=== PATIENT | female | born 1980 | race Hispanic/Latino ===

== ENCOUNTER 2016-06-29 03:37 | Emergency (ER) | payer SELFPAY ==
[~2016-06-29] VITALS: Ht 170.2 cm; Wt 79.5 kg
[~2016-06-29 03:37] MED LIST: ACET-2605 PO; OMEP20CA11 PO
[2016-06-29 03:41] VITALS: BP 126/79; PULSE 116; RESP 21; O2SAT 95
--- NOTE | 2016-06-29 03:53 | ED.REPORT ---
HPI-Abd Pain F Under 41 Date of Service Jun 29, 2016 ED Provider: Dr. Duran Rodas MD A 36 year old female presents to the ED complaining of N/V that began one week ago. Associated symptoms include fever, productive cough with yellow sputum, dyspnea, and a sore throat. Her dyspnea is exacerbated when she lays flat. Patient has been unable to eat without vomiting. She reports that her symptoms have become increasingly worse since onset. Patient denies any cough-vomiting. Nursing Notes Stated Complaint: NAUSEA, VOMITING Chief Complaint: Female Abdominal Pain Nursing Notes Reviewed: Yes Allergies: Coded Allergies: No Known Allergies (Unverified Allergy, Unknown, 03/07/15) Scheduled Azithromycin (Zithromax) 250 Mg Tablet 250 MG PO DAILY Cephalexin (Keflex) 500 Mg Capsule 500 MG PO QID Omeprazole (Omeprazole) 20 Mg Capsule.dr 20 MG PO DAILY Scheduled PRN Acetaminophen/Diphenhydramine (Tylenol Pm Ex-Strength Caplet) 500 Mg-25 Mg Tablet 2 EACH PO Q6H PRN PRN For Pain Ondansetron ODT (Ondansetron ODT) 8 Mg Tab.rapdis 8 MG PO QID PRN PRN For Nausea General Time Seen by MD: 03:52 Chief Complaint Vomiting moderate Hx Obtained From: Patient Arrived By: Walk-in Sudden in Onset?: No Onset Occurred: 1 week ago Symptom Duration: Since onset Progression since Onset: Gradually worsening Associated with: Reports: Fever, Nausea, Shortness of breath, Vomiting Pertinent Negative: Pt denies other symptoms : 3 Para: 2 Abortions: 1 RH Status / Blood Type: Rh Positive Exacerbated by: Supine Recent Healthcare: No recent doctor visit, No recent hospitalization Past Medical History Past Medical History Notes: Past Medical History Rh + Blood type O+ after review of old records Past Surgical History D&C Reports: (x 2), Hysterectomy Smoking History Current Every Day Smoker Social History Denies smoking at this time. Alcohol Use: Denies alcohol use Drug Use: Denies drug use Other Social History: , Local resident Ambulatory Status Independent Review of Systems Constitutional: Reports: Fever Respiratory: Reports: Prod cough, yellow, Shortness of breath Cardiovascular: Denies: Chest pain GI: Reports: Abdominal pain, Nausea, Vomiting Female: Denies: Complete sys rev & neg: except as marked. Neurologic: Denies: Change LOC Physical Exam Initial Vital Signs Vital Signs (First) Date Time Temp Pulse Resp B/P Pulse Ox O2 Delivery O2 Flow Rate FiO2 06/29/16 03:41 39.9 116 21 126/79 95 Room Air Initial VS: Reviewed Head / Eyes: Atraumatic, Normocephalic, PERRL Extremities: Vascular intact, Neuro intact, No swelling, No tenderness Neurologic: Alert, Oriented, Nonfocal Psychiatric: Mood/affect normal, Behavior normal, Normal thought content General/Constitutional: Awake, Alert, No acute distress, Well hydrated Respiratory / Chest: Atraumatic, Breath sounds NL, Breath sounds = bilat, No respiratory distress RESPIRATORY: Bronchospastic cough Cardiovascular: Heart rate NL, Regular rhythm, Heart sounds NL Abdomen: Atraumatic, Soft, Non-tender Back: Atraumatic, Inspection NL Skin: Atraumatic, Color NL, Warm SKIN: Warm, moist Neck: Atraumatic, Supple, No adenopathy Interpretation & Diagnostics Lab Results Interpretation Result Diagram: 06/29/1640906/29/16 0410 Test 06/29/16 04:10 White Blood Count 15.1th/mm3 (3.8-10.1) Red Blood Count 4.65mil/mm3 (3.90-5.20) Hemoglobin 13.5g/dL (12.0-15.6) Hematocrit 39.6% (35.0-46.0) Mean Corpuscular Volume 85.2fL (81-100) Mean Corpuscular Hemoglobin 29.0pg (27.0-35.0) Mean Corpuscular Hemoglobin Concent 34.1% (32.0-37.0) Red Cell Distribution Width 13.0% (12.3-15.4) Platelet Count 183bil/L (150-400) Neutrophils (%) (Auto) 83.8% (40-74) Lymphocytes (%) (Auto) 7.2% (14-46) Monocytes (%) (Auto) 7.5% (4-12) Eosinophils (%) (Auto) 1.2% (0-5) Basophils (%) (Auto) 0.1% (0-3) Sodium Level 137mEq/L (134-144) Potassium Level 3.8mEq/L (3.5-5.2) Chloride Level 99mEq/L (97-108) Carbon Dioxide Level 25mmol/L (18-29) Blood Urea Nitrogen 8mg/dL (6-20) Creatinine 0.39mg/dL (0.57-1.00) Estimat Glomerular Filtration Rate 268mL/min (>59) Glucose Level 120mg/dL (60-99) Calcium Level 8.4mg/dL (8.5-10.1) Magnesium Level 1.6mg/dL (1.6-2.6) Total Bilirubin 0.3mg/dL (0.0-1.2) Aspartate Amino Transf (AST/SGOT) 34U/L (0-50) Alanine Aminotransferase (ALT/SGPT) 38U/L (0-32) Alkaline Phosphatase 58U/L (25-150) Total Protein 7.6g/dL (6.4-8.4) Albumin 4.1g/dL (3.4-5.0) Procalcitonin 0.06ng/mL (0.00-0.08) Lab Results Interpretation: : Negative Influenza Negative X-Ray Chest Interpretation Chest Xray Interpretation: IMPRESSION: Right middle lobe with infiltrate Blunting of left hemidiaphragm Interpretation / Wet Read by: Wet read ED physician Re-Eval/Medical Decision Med Decision/Clinical Course Med Decision/Clinical Course: 36-year-old with cough and vomiting, fever, production of sputum with her cough, proves to have a right middle lobe infiltrate. She has some blunting of her left costophrenic angle of uncertain etiology. She was begun with Rocephin here and Keflex to follow, azithromycin here and a finish a Z-Zhou to follow. Albuterol metered-dose inhaler when necessary. Zofran for nausea. Prompt return if worse despite treatment. Re-Evaluation/Progress : Time of Eval: 05:05 Patient Status: Condition improved Re-Evaluation/Progress Note: Patient is rechecked. She is informed of her lab results, X-ray results and diagnosis. All questions are addressed. Patient is requesting a work note. She understands and agrees with the treatment plan. Counseled Regarding: Diagnosis, Lab results, Need for follow-up, When/why to return to ED Discharge & Departure Primary Impression: Community acquired pneumonia Additional Impressions: Vomiting Vomiting type: unspecified Vomiting Intractability: non-intractable Nausea presence: with nausea Qualified Code: R11.2 - Nausea with vomiting, unspecified Reactive airway disease that is not asthma Disposition: Home Discharge Condition All VS Reviewed: Yes Condition: Stable Patient Instructions: Acute Nausea and Vomiting (ED), Community-acquired Pneumonia (ED) Additional Instructions: Use Albuterol two puffs every four hours with spacer as needed. Take azithromycin daily for four more days. Take keflex 4x daily for ten days. Drink plenty of fluids and stay well-hydrated. Run a vaporizer in her room if possible. Zofran up to four times daily if needed for nausea Follow-up with your doctor in the office. Return if any immediate issues, particularly worsening trouble breathing or if you are getting worse despite treatment. Utilice Albuterol dos puffs cada cuatro horas con espaciador segn sea necesario. [place] azitromicina diariamente samia cuatro cheung ms. [place] Keflex quatro veces al da samia vicki cheung. Zandra mucho lquido y mantenerse duke hidratado. Ejecutar un vaporizador en mcdaniel habitacin si es posible. Zofran hasta cuatro veces al da si es necesario para las nuseas Seguimiento con mcdaniel mdico en la oficina. Regrese si hay problemas inmediatos, especialmente empeoramiento de la dificultad para respirar o si empeora a pesar del tratamiento. Referrals: [facility] (PCP) [facility] Scribe Attestation Portions of this note were transcribed by Olga España. IDr. Rodas personally performed the history, physical exam and medical decision-making; I reviewed and confirmed the accuracy of the information in the transcribed note. Signed by: Mary Bowman, 06/29/16 0600. Duran Rodas MD Jun 29, 2016 03:52 OLGA ESPAÑA Jun 29, 2016 03:59
[2016-06-29] MEDS ORDERED: Ondansetron 2 mg/mL 2 mL Inj ONE (04:06)
[2016-06-29] MEDS ORDERED: 0.9% Sodium Chloride 1,000 ML IV ONE (04:16)
[2016-06-29] MEDS ORDERED: Albuterol 2.5 mg/3 mL Inhalation Solution NEB ONE (04:20)
[2016-06-29] MEDS ORDERED: Albuterol-Ipratropium 3 mL Inhalation Solution NEB ONE (04:20)
[2016-06-29 04:30] LABS: BASOPHILS % (AUTO) 0.1 % (0-3); EOSINOPHILS % (AUTO) 1.2 % (0-5); MONOCYTES % (AUTO) 7.5 % (4-12); Mean Corpuscular Volume 85.2 fL (81-100); NEUTROPHILS % (AUTO) 83.8 % (40-74); Platelet Count 183 bil/L (150-400)
[2016-06-29] MEDS ORDERED: _Albuterol-HFA 60 Puff Inhaler INHALATION PRN (04:55)
[2016-06-29] MEDS ORDERED: cefTRIAXone Inj 2,000 MG in Dextrose 5% Minibag Plus 50 ML IV ONE (04:55)
[2016-06-29 05:19] LABS: Magnesium 1.6 mg/dL (1.6-2.6)
[2016-06-29] MEDS ORDERED: ZIT250 PO (05:20)
[2016-06-29] MEDS ORDERED: ONDA8TAB10 PO (05:20)
[2016-06-29] MEDS ORDERED: CEFU500T61 PO (05:20)
[2016-06-29] MEDS ORDERED: CEPH-512 PO (05:29)
[2016-06-29 05:41] VITALS: BP 132/78; PULSE 88; RESP 18; O2SAT 96
--- NOTE | 2016-06-29 08:24 | DRSVH ---
PROCEDURE: X-RAY CHEST, TWO VIEWS ([id number]) INDICATIONS: cough one week TECHNIQUE: 2 views of the chest were acquired. COMPARISON: [facility], , CHEST 2VW, 04/08/2011, 22:57. FINDINGS: Surgical changes and devices: None. Lungs and pleura: There is a persistent appearance of patchy opacities within the right lung. It is k nown that these were present on prior exam dated 04/08/11. However, it appears slightly more prominen t within the right base on today's exam. Mediastinum: Mediastinal contours are normal. Heart size is normal. Bones and chest wall: No suspicious bony abnormalities. Soft tissues appear unremarkable. IMPRESSION: Persistent right lung opacities when compared to prior exam with slight increase interval prominence in the right base suggestive of superimposed pneumonia. Dictated by: Radha Denton M.D. on 06/29/2016 at 8:21 Approved by: Radha Denton M.D. on 06/29/2016 at 8:22
== END 2016-06-29 05:20 | disposition home or self-care (01) ==
LOC: SED 03:41
DX: J18.9 Pneumonia, unspecified organism (principal); R11.2 Nausea with vomiting, unspecified; J98.9 Respiratory disorder, unspecified; F17.200 Nicotine dependence, unspecified, uncomplicated
CPT/HCPCS: 36415; 71020; 80053; 82308; 83735; 85025; 87040; 87804; 94640; 94664; 96361; 96365; 96375; 99285; J0696; J2405; J7030; J7613; J7620